=== PATIENT | male | born 1935 | race Caucasian/White ===

== ENCOUNTER → 2016-06-18 10:29 | Day surgery (SDC) | payer MEDICARE, OTHER ==
[~2016-06-18 10:29] MED LIST: Acetaminophen TAB* 325 MG PO PRN; Acetylcholine 1:100 OPTH* OPHTH.SOLN ONE; Atropine 1% OPHTH.SOL* 2 ML BOT - 2 ML ONE; BSS OPTH.SOL* BTL ONE; Buffered Lidocaine 1% SYRIN* 3 ML/SYR SYRINGE INTRADERM ONE; Glycopyrrolate IV* 0.2 MG/ML 1 ML VIAL ONE; Hyaluronidase OVINE* 200 UNIT/ML ML SUBCUT ONE; Lidocaine 2% EPI 1:200000 MPF* 20 ML VIAL ONE; Lidocaine 2% PF* 10 ML AMP ONE; Midazolam* 1 MG/ML 5 ML VIAL (5 MG) ONE; Neomycin/Polymy/Dex OPTH.SUSP* MAXITROL 0.1% 5 ML ONE; Ondansetron INJ* 2 MG/ML VIAL ONE; Povidone Iodine 5% OPTH* 30 ML BTL ONE; Proparacaine 0.5% OPHTH.SOL* 15 ML BTL ONE; Propofol* 10 MG/ML 20 ML BTL IV PUSH ONE; Sodium Bicarbonate 8.4% SYR* 10 ML SYRINGE ONE; Triamcinolone Acetonide* 40 MG/ML 1 ML VIAL ONE; fentaNYL* 50 MCG/ML 2 ML VIAL (100 MCG VIAL) ONE; mitoMYcin 0.2 MG (0.02%) in Sterile Water for Inj* 1 ML OPHTHALMIC SCH; mitoMYcin PWD* 0.2 MG in Sterile Water for Inj* 1 ML OPHTHALMIC SCH
[2016-06-18 15:04] VITALS: BP 124/72
--- NOTE | 2016-06-19 05:21 | OP ---
DATE OF OPERATION: 06/18/16 - [facility] DATE OF : 33 SURGEON: Luis A Farah MD ANESTHESIA: Local with MAC. PREOPERATIVE DIAGNOSIS: Uncontrolled glaucoma, left eye. POSTOPERATIVE DIAGNOSIS: Uncontrolled glaucoma, left eye. OPERATIVE PROCEDURE: Trabeculectomy, left eye. COMPLICATIONS: None. DESCRIPTION OF PROCEDURE: The patient was given retrobulbar anesthesia in the operating room. 50:50 mixture of 2% lidocaine and 0.75 Marcaine added, 5 cc were given to the muscle cone without difficulty. The eye was prepped and draped in the usual sterile fashion. Lid speculum was placed. A superior limbal traction suture 6-0 silk was placed and the eye rotated inferiorly. A fornix-based conjunctival peritomy was performed from the 9:30 to 11:30 position with the Dc scissors. Hemostasis was achieved with cautery. The mitomycin-C 0.2 mg per mL was given subconjunctivally for 1 minute and then thoroughly irrigated. A limbal based half sclera thickness triangular sclera flap was created using a crescent blade. Anterior chamber entered with a 3 mm keratome. A 3 x 1 trabecular block excised using the Janice punch, peripheral iridectomy performed using the Vannas scissors. Scleral flap sutured with two 10 -0 nylon interrupted sutures. Paracentesis was made at the 4 o'clock position. Balanced salt solution used to irrigate the anterior chamber as well as Miochol, then the conjunctiva was closed using a running locking 10-0 nylon closure. Traction suture removed. Topical atropine and Maxitrol given. Kenalog 40 per mL, 1 mL was given sub-Tenons, and the area was patched. [id number]/[facility] #: [id number] [facility]
== END | disposition home or self-care (01) ==
LOC: OREAST 10:29
PROVIDERS: ATTEND Specialist
DX: H40.1123 Primary open-angle glaucoma, left eye, severe stage (principal); H40.1111 Primary open-angle glaucoma, right eye, mild stage; F43.21 Adjustment disorder with depressed mood
CPT/HCPCS: A9270-GY; J2001; J2250; J2405; J2704; J3010; J3301; J9293

== ENCOUNTER 2016-08-06 10:39 | Day surgery (SDC) | payer MEDICARE, OTHER ==
[~2016-08-06 10:39] MED LIST changes: -Atropine 1% OPHTH.SOL* 2 ML BOT - 2 ML ONE; -Buffered Lidocaine 1% SYRIN* 3 ML/SYR SYRINGE INTRADERM ONE; +Buffered Lidocaine 1% SYRIN* 5 ML/SYR SYRINGE INTRADERM ONE; -Glycopyrrolate IV* 0.2 MG/ML 1 ML VIAL ONE; -Midazolam* 1 MG/ML 5 ML VIAL (5 MG) ONE; -Ondansetron INJ* 2 MG/ML VIAL ONE; -Proparacaine 0.5% OPHTH.SOL* 15 ML BTL ONE; -Propofol* 10 MG/ML 20 ML BTL IV PUSH ONE; -Sodium Bicarbonate 8.4% SYR* 10 ML SYRINGE ONE; +Sodium Bicarbonate 8.4%* 50 ML SYRINGE ONE; -fentaNYL* 50 MCG/ML 2 ML VIAL (100 MCG VIAL) ONE; -mitoMYcin 0.2 MG (0.02%) in Sterile Water for Inj* 1 ML OPHTHALMIC SCH
[2016-08-06] MEDS ORDERED: Proparacaine 0.5% OPHTH.SOL* 15 ML BTL ONE (10:47)
[2016-08-06] MEDS ORDERED: Atropine 1% OPHTH.SOL* 2 ML BOT - 2 ML ONE (12:05)
[2016-08-06] MEDS ORDERED: fentaNYL* 50 MCG/ML 2 ML VIAL (100 MCG VIAL) ONE (13:03)
[2016-08-06] MEDS ORDERED: Midazolam* 1 MG/ML 5 ML VIAL (5 MG) ONE ×2 (13:04)
[2016-08-06 14:17] VITALS: BP 145/66
--- NOTE | 2016-08-07 02:54 | OP ---
DATE OF OPERATION: 08/06/16 - [facility] DATE OF : 33 SURGEON: Luis A Farah MD ANESTHESIA: Local with MAC. PRE-OP DIAGNOSIS: Uncontrolled glaucoma, right eye. POST-OP DIAGNOSIS: Uncontrolled glaucoma, right eye. OPERATIVE PROCEDURE: Trabeculectomy, right eye. COMPLICATIONS: None. DESCRIPTION OF PROCEDURE: The patient was given retrobulbar anesthesia in the operating room, 50:50 mixture of 0.75 Marcaine with 2% lidocaine with epinephrine 50:50 mixture, 4 cc was injected into the muscle cone without difficulty. 6-0 silk traction suture was placed through superior limbus and the eye rotated inferiorly. Paracentesis made at the 8 o'clock position with a blade. A fornix-based conjunctival peritomy was performed with Dc scissors. Hemostasis was achieved with low-temp cautery. Mitomycin-C 0.2 mg/mL was placed sub-Tenon's for a little over one minute and then thoroughly irrigated with balanced salt solution. A triangular half scleral thickness limbal based scleral flap was created with the crescent blade also at the 2 o'clock position. Anterior chamber entered with a 2.2 mm keratome and Miochol instilled into the anterior chamber. The trabecular block excised using the Janice punch underneath that flap and then the flap secured with one 10-0 nylon suture at the apex. Conjunctiva was then closed using a running locking 10-0 nylon suture at the limbus and a 9-0 Vicryl locking suture closure along the edges. All wounds were checked and found to be watertight. Sub-Tenon's Kenalog 40 mg/mL 1 mL was injected and then the eye was patched. [id number]/[facility] #: [id number] [facility] HEALTH SYSTEMIngrid
== END 2016-08-06 14:14 | disposition home or self-care (01) ==
LOC: OREAST 10:39
PROVIDERS: ATTEND Specialist
DX: H40.1110 Primary open-angle glaucoma, right eye, stage unspecified (principal); Z88.1 Allergy status to other antibiotic agents; Z88.0 Allergy status to penicillin
CPT/HCPCS: A9270-GY; J2001; J2250; J3010; J3301; J9293

== ENCOUNTER 2018-06-25 09:08 | Emergency (ER) | payer MEDICARE, OTHER ==
--- NOTE | 2018-06-25 10:22 | ED ---
Upper Extremity Pain - HPI Summary HPI Summary: 83-year-old male with history of glaucoma presents with right arm pain today. He states he slept wrong. He states he was unable to straighten his arm. He states he had pain over his lower biceps area. He states feels like soft tissue pain. Denies any injury. He states is gradually been able to straighten his arm and has had decreasing pain. He states he did have some nausea likely due to the pain. Denies any neck pain. No weakness. No numbness or tingling. No chest pain or shortness of breath. No headache. No change in vision. no difficulties with speech. This never happened before. - History of Current Complaint Chief Complaint: EDExtremityUpper Stated Complaint: SLEPT ON RT ARM/SHLDER CANT STRAIGHTEN/NAUSEA PT Time Seen by Provider: 06/25/18 09:31 - Allergies/Home Medications Allergies/Adverse Reactions: Allergies Allergy/AdvReac Type Severity Reaction Status Date / Time brimonidine Allergy Eyes Verified 06/25/18 09:18 Itchy/Swollen/Red/Watery brinzolamide Allergy Hives Verified 06/25/18 09:18 Penicillins Allergy Hives Verified 06/25/18 09:18 Sulfa (Sulfonamide Allergy Hives Verified 06/25/18 09:18 Antibiotics) Home Medications: Home Medications Magnesium Oxide [Magnesium] 250 mg PO DAILY 06/25/18 [History Confirmed 06/25/18 ] PMH/Surg Hx/FS Hx/Imm Hx Endocrine/Hematology History: Denies: Hx Diabetes Cardiovascular History: Reports: Other Cardiovascular Problems/Disorders - PERIPHERAL CIRCULATORY PROBLEMS WITH TOES Denies: Hx Hypertension, Hx Pacemaker/ICD Respiratory History: Reports: Other Respiratory Problems/Disorders - CHRONIC SNEEZE GI History: Reports: Hx Gastroesophageal Reflux Disease - PRN TUMS History: Reports: Hx Kidney Stones - 40 YEARS AGO X 1, Other Problems/ Disorders - Prostate cancer- HAD SURGERY FOR 10 YEARS AGO Denies: Hx Renal Disease Musculoskeletal History: Reports: Hx Arthritis - MILD IN THE NECK, Hx Bursitis - HX OF ELBOW- RIGHT, Hx Osteoporosis, Hx Tendonitis - HX OF MILD - RIGHT THUMB Denies: Hx Rheumatoid Arthritis Sensory History: Reports: Hx Cataracts, Hx Contacts or Glasses - GLASSES, Hx Glaucoma - BILATERAL Denies: Hx Hearing Aid Opthamlomology History: Reports: Hx Cataracts, Hx Contacts or Glasses - GLASSES , Hx Glaucoma - BILATERAL Neurological History: Reports: Other Neuro Impairments/Disorders - Peripheral nueropathy - FEET, rt hand essential tremor Psychiatric History: Reports: Hx Depression - 20 YEARS AGO Denies: Hx Panic Disorder - Cancer History Cancer Type, Location and Year: See above Hx Chemotherapy: No - Surgical History Surgery Procedure, Year, and Place: PROSTATECTOMY 2003. T&A- A CHILD. TRABECULECTOMY LEFT X 2 AND RIGHT EYE- 2 YEARS AGO- [place]. RIGHT AND LEFT CATARACT REMOVAL-2015 Hx Anesthesia Reactions: Yes - NAUSEA- BUT NOT WITH RECENT SURGERIES PER PATIENT Infectious Disease History: No Infectious Disease History: Denies: Traveled Outside the [place] in Last 30 Days - Family History Known Family History: Positive: Non-Contributory - Social History Alcohol Use: Occasionally Alcohol Amount: 1 Beer /month Substance Use Type: Reports: None Smoking Status (MU): Never Smoked Tobacco Review of Systems Negative: Fever Negative: Chest Pain Negative: Shortness Of Breath Positive: Myalgia - right arm pain All Other Systems Reviewed And Are Negative: Yes Physical Exam Triage Information Reviewed: Yes Vital Signs On Initial Exam: Initial Vitals Temp Pulse Resp BP Pulse Ox 97 F 48 16 114/93 99 06/25/18 09:12 06/25/18 09:12 06/25/18 09:12 06/25/18 09:12 06/25/18 09:12 Vital Signs Reviewed: Yes Appearance: Positive: Well-Appearing Skin: Positive: Warm, Dry Head/Face: Positive: Normal Head/Face Inspection Eyes: Positive: Normal, EOMI, DENNYS, Conjunctiva Clear ENT: Positive: Pharynx normal Neck: Positive: Other: - nontender neck, full ROM neck Respiratory/Lung Sounds: Positive: Clear to Auscultation, Breath Sounds Present Cardiovascular: Positive: Normal, RRR Musculoskeletal: Positive: Strength/ROM Intact - right arm, Other - good pulses , good voice teacher strength, sensation grossly intact, tenderness right antecubital region Neurological: Positive: Normal, Sensory/Motor Intact, Alert, Oriented to Person Place, Time, CN Intact II-III, Normal Gait, Facial Symmetry, Speech Normal. Negative: Pronator Drift Present Psychiatric: Positive: Normal - Elder Coma Scale Best Eye Response: 4 - Spontaneous Best Motor Response: 6 - Obeys Commands Best Verbal Response: 5 - Oriented Coma Scale Total: 15 Diagnostics - Vital Signs Vital Signs Temp Pulse Resp BP Pulse Ox 06/25/18 09:12 97 F 48 16 114/93 99 - Laboratory Result Diagrams: 06/25/18 10:19 06/25/18 10:19 Lab Statement: Any lab studies that have been ordered have been reviewed, and results considered in the medical decision making process. - EKG No standard instances Cardiac Rate: Bradycardia EKG Rhythm: Sinus Bradycardia Summary of EKG Findings: sinus bradycardia Course/Dx - Course Course Of Treatment: 83-year-old male with history of glaucoma presents with right arm pain today. He states he slept wrong. He states he was unable to straighten his arm. He states he had pain over his lower biceps area. He states feels like soft tissue pain. Denies any injury. He states is gradually been able to straighten his arm and has had decreasing pain. He states he did have some nausea likely due to the pain. Denies any neck pain. No weakness. No numbness or tingling. No chest pain or shortness of breath. No headache. No change in vision. no difficulties with speech. This never happened before. On exam has full range of motion of right arm. good strength. Neurovascular intact. Cranial nerves intact. Nih 0. no sign of stoke on exam. full ROM neck and nontneder neck. EKG shows sinus bradycardia which has a history of. troponin zero. lab work wnl. discussed likely muscular. told take tyenlol and apply heat. warned if anything changes to return. patient understand and agrees with plan. - Diagnoses Differential Diagnosis/HQI/PQRI: Positive: Fracture (Closed), Strain, Sprain Provider Diagnoses: Right arm pain Discharge - Sign-Out/Discharge Documenting (check all that apply): Patient Departure Patient Received Moderate/Deep Sedation with Procedure: No - Discharge Plan Condition: Good Disposition: HOME Referrals: Miya Tran MD [Primary Care Provider] - Additional Instructions: follow up with primary within 5 days take Tylenol every 6 hours as needed for pain apply heat Return to ED if develop any weakness, chest pain, SOB, slurred speech, or any new or worsening symptoms - Billing Disposition and Condition Condition: GOOD Disposition: Home
[2018-06-25 10:28] LABS: ABS Basophils 0.1 10^3/ul (0-0.2); ABS Eosinophils 0.2 10^3/ul (0-0.6); ABS Lymphocytes 1.2 10^3/ul (1.0-4.8); ABS Monocytes 0.4 10^3/ul (0-0.8); ABS Neutrophils 3.4 10^3/ul (1.5-7.7); ABS Nucleated RBC 0 10^3/ul; Eosinophil % 3.2 %; Hematocrit 42 % (36-46); Hemoglobin 14.1 g/dL (14.0-18.0); Lymphocyte % 22.5 %; Mean Corpuscular HGB Conc 34 g/dL (31-36); Mean Corpuscular Hemoglobin 31 pg (27-31); Mean Corpuscular Volume 90 fL (80-94); Mean Platelet Volume 9.7 fL (7.4-10.4); Nucleated Red Blood Cells % 0.1; Platelet Count 194 10^3/uL (150-450); Red Blood Count 4.63 10^6 /uL (4.18-5.48); Red Cell Distribution Width 14 % (10.5-15); White Blood Count 5.2 10^3/uL (3.5-10.8)
[2018-06-25 10:56] LABS: Albumin 4.1 g/dL (3.2-5.2); Albumin/Globulin Ratio 1.5 (1-3); BUN/Creatinine Ratio 19.2 (8-20); Calcium 9.6 mg/dL (8.6-10.3); EGFR African American 82.3 (>60); Globulin 2.8 g/dL (2-4); Potassium 4.5 mmol/L (3.5-5.0); Total Bilirubin 0.4 mg/dL (0.2-1.0); Total Protein 6.9 g/dL (6.4-8.9)
[2018-06-25 11:56] VITALS: BP 132/54
== END 2018-06-25 11:54 | disposition home or self-care (01) ==
LOC: ED 09:08
DX: M79.601 Pain in right arm (principal); K21.9 Gastro-esophageal reflux disease without esophagitis; Z87.442 Personal history of urinary calculi; Z88.0 Allergy status to penicillin; Z88.2 Allergy status to sulfonamides
CPT/HCPCS: 36415; 80053; 84484; 85025; 93005; 99282

== ENCOUNTER 2020-08-03 09:57 | Inpatient (IN) ==
[2020-08-03] MEDS ORDERED: NS 0.9% 1000 ml BAG 1,000 ML IV ONE (11:00)
[2020-08-03 12:14] LABS: ABS Basophils 0.1 10^3/ul (0-0.2); ABS Lymphocytes 1.2 10^3/ul (1.0-4.8); ABS Monocytes 0.7 10^3/ul (0-0.8); ABS Neutrophils 5.9 10^3/ul (1.5-7.7); Eosinophil % 0.2 %; Hematocrit 41 % (42-52); Hemoglobin 13.9 g/dL (14.0-18.0); Lymphocyte % 14.7 %; Mean Corpuscular HGB Conc 34 g/dL (31-36); Mean Corpuscular Hemoglobin 31 pg (27-31); Mean Corpuscular Volume 89 fL (80-94); Mean Platelet Volume 10.7 fL (7.4-10.4); Platelet Count 216 10^3/uL (150-450); Red Blood Count 4.56 10^6 /uL (4.18-5.48); Red Cell Distribution Width 14 % (10-15); White Blood Count 7.8 10^3/uL (3.5-10.8)
[2020-08-03 12:26] LABS: Albumin 4.3 g/dL (3.2-5.2); Anion Gap 8 mmol/L (2-11); CO2 Carbon Dioxide 26 mmol/L (22-32); Calcium 9.1 mg/dL (8.6-10.3); Chloride 94 mmol/L (101-111); Magnesium 2.3 mg/dL (1.9-2.7); Potassium 4.1 mmol/L (3.5-5.0); Sodium 128 mmol/L (135-145)
[2020-08-03 12:29] LABS: Troponin I 0.01 ng/mL (<0.03)
[2020-08-03 12:32] LABS: ALT 22 U/L (7-52); AST 41 U/L (13-39); Albumin/Globulin Ratio 1.4 (1-3); Alkaline Phosphatase 59 U/L (35-149); Blood Urea Nitrogen 13 mg/dL (6-24); C Reactive Protein 2.11 mg/L (<8.01); Creatine Kinase 523 U/L (10-223); EGFR African American 76.8 (>60); EGFR Non-African American 63.5 (>60); Glucose 107 mg/dL (70-100); Total Protein 7.3 g/dL (6.4-8.9)
[2020-08-03 12:45] LABS: Alcohol, S < 10 mg/dL (<10); Salicylate < 2.50 mg/dL (<30)
[2020-08-03 12:56] LABS: TSH Ultra Thyroid Stim Horm 2.65 mcIU/mL (0.34-5.60)
[2020-08-03 17:16] LABS: Body Fluid Source Cerebral Spinal
[2020-08-03 17:31] LABS: CSF Glucose 56 mg/dL (40-70)
[2020-08-03 18:36] LABS: Body Fluid Mono 30 %
[2020-08-03 18:56] LABS: Cholesterol 143 mg/dL; HDL Cholesterol 37.9 mg/dL; LDL Cholesterol 95 mg/dL; Triglycerides 52 mg/dL
[2020-08-03 23:26] LABS: Urine Appearance Cloudy; Urine Bilirubin Negative (Negative); Urine Blood Negative (Negative); Urine Color Yellow; Urine Glucose Negative (Negative); Urine Ketones Trace (Negative); Urine Nitrite Negative (Negative); Urine Protein Negative (Negative); Urine Specific Gravity 1.011 (1.002-1.030); Urine Urobilinogen Negative (Negative)
[2020-08-03 23:44] LABS: Urine Benzodiazepine Screen None Detected (None Detect); Urine Cannabinoids Screen None Detected (None Detect); Urine Opiates Screen None Detected (None Detect)
[2020-08-04 08:27] LABS: Calcium 9.3 mg/dL (8.6-10.3); EGFR African American 79.3 (>60); EGFR Non-African American 65.5 (>60); Potassium 3.9 mmol/L (3.5-5.0)
[2020-08-04] MEDS: Calcium/Vitamin D TAB 250/125 TAB PO SCH (10:06)
[2020-08-04] MEDS: Multivitamins/Minerals TAB PO SCH (10:08)
[2020-08-04] MEDS ORDERED: Gadoteridol (CONTRAST) 279.3 MG/ML 10 ML IV ONE (10:15)
[2020-08-04 20:44] LABS: Creatine Kinase 335 U/L (10-223)
[2020-08-04 20:52] LABS: Rheumatoid Factor < 10 IU/mL (<15)
[2020-08-04] MEDS ORDERED: METHYLPREDNISOLONE IV ONE (21:00)
[2020-08-04] MEDS ORDERED: NS 0.9% IV ONE (21:00)
[2020-08-04 21:18] LABS: Folate > 20.00 ng/mL (5.90-24.80)
[2020-08-04 21:19] LABS: Vitamin B12 > 1450 pg/mL (180-914)
[2020-08-04] MEDS ORDERED: methylPREDNISolone 125 mg 2 ML VIAL ONE (21:32)
[2020-08-05 06:11] LABS: ABS Lymphocytes 0.4 10^3/ul (1.0-4.8); ABS Monocytes 0.1 10^3/ul (0-0.8); ABS Neutrophils 6.2 10^3/ul (1.5-7.7); Hematocrit 39 % (42-52); Hemoglobin 13.4 g/dL (14.0-18.0); Lymphocyte % 5.6 %; Mean Corpuscular HGB Conc 34 g/dL (31-36); Mean Corpuscular Hemoglobin 31 pg (27-31); Mean Corpuscular Volume 89 fL (80-94); Mean Platelet Volume 10.9 fL (7.4-10.4); Platelet Count 208 10^3/uL (150-450); Red Blood Count 4.41 10^6 /uL (4.18-5.48); Red Cell Distribution Width 14 % (10-15); White Blood Count 6.7 10^3/uL (3.5-10.8)
[2020-08-05 06:26] LABS: Calcium 9.2 mg/dL (8.6-10.3); EGFR African American 84.7 (>60); Potassium 4.2 mmol/L (3.5-5.0)
[2020-08-05] MEDS ORDERED: LOTEPREDNOL ETABONATE 0.2% BOTH EYES SCH (09:00)
[2020-08-05] MEDS: Calcium/Vitamin D TAB 250/125 TAB PO SCH ×2 (10:42→11:14)
[2020-08-05] MEDS: Multivitamins/Minerals TAB PO SCH ×2 (10:42→11:15)
[2020-08-05] MEDS ORDERED: methylPREDNISolone SOD SUCC 1,000 MG in NS 0.9% 1000 ml BAG 1,000 ML IVPB ONE (16:09)
[2020-08-05] MEDS: methylPREDNISolone SOD SUCC 1,000 MG in NS 0.9% 250 ml 250 ML IVPB SCH (17:55)
[2020-08-06] MEDS: Calcium/Vitamin D TAB 250/125 TAB PO SCH (10:37)
[2020-08-06] MEDS: methylPREDNISolone SOD SUCC 1,000 MG in NS 0.9% 250 ml 250 ML IVPB SCH (10:38)
[2020-08-06] MEDS: Multivitamins/Minerals TAB PO SCH (10:38)
[2020-08-06 11:03] LABS: Calcium 9.9 mg/dL (8.6-10.3); EGFR African American 77.6 (>60); EGFR Non-African American 64.1 (>60)
[2020-08-07] MEDS: methylPREDNISolone SOD SUCC 1,000 MG in NS 0.9% 250 ml 250 ML IVPB SCH (09:19)
[2020-08-07] MEDS: Multivitamins/Minerals TAB PO SCH (09:20)
[2020-08-07] MEDS: Dextran 70/Hypromellose Tears Eye Drops 15 ml BTL (for Artificials Tears) BOTH EYES PRN (09:20)
[2020-08-07] MEDS: Calcium/Vitamin D TAB 250/125 TAB PO SCH (09:20)
[2020-08-07] MEDS: LOTEPREDNOL ETABONATE BOTH EYES SCH (10:16)
[2020-08-07] MEDS ORDERED: Lorazepam PYXIS KEY PRN (14:37)
[2020-08-07] MEDS ORDERED: Gadoteridol (CONTRAST) 279.3 MG/ML 10 ML IV ONE (15:24)
[2020-08-07] MEDS ORDERED: LORazepam 2 mg VIAL 1 ml IV PUSH ONE (18:00)
[2020-08-07 23:54] LABS: Thyroid Peroxidase Antibodies 4.99 IU/mL (<9)
[2020-08-08 04:18] LABS: Urine Appearance Cloudy; Urine Bilirubin Negative (Negative); Urine Blood 3+ (Negative); Urine Color Yellow; Urine Glucose Negative (Negative); Urine Ketones Negative (Negative); Urine Nitrite Negative (Negative); Urine Protein 1+(30 mg/dL) (Negative); Urine Urobilinogen Negative (Negative)
[2020-08-08 04:45] LABS: Urine Bacteria Absent (Absent); Urine Red Blood Cell 3+(>10/hpf) (Absent); Urine White Blood Cell Trace(0-5/hpf) (Absent)
[2020-08-08] MEDS: Calcium/Vitamin D TAB 250/125 TAB PO SCH ×2 (10:34→10:39)
[2020-08-08] MEDS: Multivitamins/Minerals TAB PO SCH ×2 (10:34→10:39)
[2020-08-08] MEDS: methylPREDNISolone SOD SUCC 1,000 MG in NS 0.9% 250 ml 250 ML IVPB SCH (10:38)
[2020-08-08 16:57] LABS: HSV 1 PCR, CSF Negative (Negative); HSV 2 PCR, CSF Negative (Negative)
[2020-08-09 05:41] LABS: ABS Lymphocytes 0.4 10^3/ul (1.0-4.8); ABS Monocytes 0.8 10^3/ul (0-0.8); ABS Neutrophils 10.1 10^3/ul (1.5-7.7); Hematocrit 39 % (42-52); Hemoglobin 13.1 g/dL (14.0-18.0); Lymphocyte % 3.8 %; Mean Corpuscular HGB Conc 33 g/dL (31-36); Mean Corpuscular Hemoglobin 30 pg (27-31); Mean Corpuscular Volume 90 fL (80-94); Platelet Count 214 10^3/uL (150-450); Red Blood Count 4.34 10^6 /uL (4.18-5.48); Red Cell Distribution Width 15 % (10-15); White Blood Count 11.4 10^3/uL (3.5-10.8)
[2020-08-09 05:58] LABS: Calcium 8.9 mg/dL (8.6-10.3); EGFR African American 98.1 (>60); Potassium 4.3 mmol/L (3.5-5.0)
[2020-08-09] MEDS: Calcium/Vitamin D TAB 250/125 TAB PO SCH (08:07)
[2020-08-09] MEDS: Multivitamins/Minerals TAB PO SCH (08:08)
[2020-08-09] MEDS: LOTEPREDNOL ETABONATE BOTH EYES SCH (08:08)
[2020-08-09] MEDS: methylPREDNISolone SOD SUCC 1,000 MG in NS 0.9% 250 ml 250 ML IVPB SCH (08:16)
[2020-08-09 13:27] LABS: Amphiphysin Ab, CSF Negative titer (<1:2); CRMP-5-IgG, CSF Negative titer (<1:2); PCA-1, CSF Negative titer (<1:2); PCA-2, CSF Negative titer (<1:2); PCA-Tr, CSF Negative titer (<1:2)
[2020-08-09 15:17] LABS: CSF VDRL Negative (Negative)
[2020-08-10] MEDS: Multivitamins/Minerals TAB PO SCH (09:52)
[2020-08-10] MEDS: Calcium/Vitamin D TAB 250/125 TAB PO SCH (09:52)
[2020-08-10] MEDS: Dextran 70/Hypromellose Tears Eye Drops 15 ml BTL (for Artificials Tears) BOTH EYES PRN (10:05)
[2020-08-10] MEDS: methylPREDNISolone SOD SUCC 1,000 MG in NS 0.9% 250 ml 250 ML IVPB SCH (22:52)
[2020-08-10] MEDS ORDERED: Magnesium Sulfate IV 1GM/100ML 1 GM/100 ML BAG IV ONE (23:42)
[2020-08-11 00:07] LABS: Magnesium 2.7 mg/dL (1.9-2.7)
[2020-08-11 05:57] LABS: ABS Lymphocytes 0.3 10^3/ul (1.0-4.8); ABS Monocytes 0.1 10^3/ul (0-0.8); ABS Neutrophils 8.1 10^3/ul (1.5-7.7); Hematocrit 36 % (42-52); Hemoglobin 12.4 g/dL (14.0-18.0); Lymphocyte % 3.7 %; Mean Corpuscular HGB Conc 34 g/dL (31-36); Mean Corpuscular Hemoglobin 30 pg (27-31); Mean Corpuscular Volume 89 fL (80-94); Mean Platelet Volume 10.4 fL (7.4-10.4); Platelet Count 179 10^3/uL (150-450); Red Blood Count 4.08 10^6 /uL (4.18-5.48); Red Cell Distribution Width 15 % (10-15); White Blood Count 8.6 10^3/uL (3.5-10.8)
[2020-08-11 06:11] LABS: Calcium 8.6 mg/dL (8.6-10.3); EGFR Non-African American 84.3 (>60); Potassium 4.6 mmol/L (3.5-5.0)
[2020-08-11] MEDS: Multivitamins/Minerals TAB PO SCH (10:53)
[2020-08-11] MEDS: LOTEPREDNOL ETABONATE BOTH EYES SCH (10:54)
[2020-08-11] MEDS: Calcium/Vitamin D TAB 250/125 TAB PO SCH (10:54)
[2020-08-11] MEDS: methylPREDNISolone SOD SUCC 1,000 MG in NS 0.9% 250 ml 250 ML IVPB SCH (12:43)
[2020-08-12] MEDS: Multivitamins/Minerals TAB PO SCH (10:29)
[2020-08-12] MEDS: Calcium/Vitamin D TAB 250/125 TAB PO SCH (10:29)
[2020-08-12 19:29] LABS: Magnesium 2.6 mg/dL (1.9-2.7)
[2020-08-13 06:27] LABS: ABS Lymphocytes 1.2 10^3/ul (1.0-4.8); ABS Neutrophils 5.4 10^3/ul (1.5-7.7); Eosinophil % 0.1 %; Hematocrit 39 % (42-52); Hemoglobin 13.2 g/dL (14.0-18.0); Lymphocyte % 16.3 %; Mean Corpuscular HGB Conc 34 g/dL (31-36); Mean Corpuscular Hemoglobin 30 pg (27-31); Mean Corpuscular Volume 90 fL (80-94); Mean Platelet Volume 10.5 fL (7.4-10.4); Platelet Count 174 10^3/uL (150-450); Red Blood Count 4.37 10^6 /uL (4.18-5.48); Red Cell Distribution Width 14 % (10-15); White Blood Count 7.7 10^3/uL (3.5-10.8)
[2020-08-13 06:43] LABS: Calcium 8.5 mg/dL (8.6-10.3); EGFR African American 110.9 (>60); EGFR Non-African American 91.7 (>60); Magnesium 2.4 mg/dL (1.9-2.7); Potassium 3.9 mmol/L (3.5-5.0)
[2020-08-13] MEDS: LOTEPREDNOL ETABONATE BOTH EYES SCH (08:21)
[2020-08-13] MEDS: Calcium/Vitamin D TAB 250/125 TAB PO SCH (08:22)
[2020-08-13] MEDS: Multivitamins/Minerals TAB PO SCH (08:22)
[2020-08-13 10:43] LABS: West Nile Virus Source CSF
[2020-08-13] MEDS ORDERED: hydrALAZINE 20 mg/ml 1 ML Vial IV IV SLOW PU ONE (20:27)
[2020-08-14] MEDS: Multivitamins/Minerals TAB PO SCH (07:33)
[2020-08-14] MEDS: Calcium/Vitamin D TAB 250/125 TAB PO SCH (07:34)
[2020-08-14 11:49] VITALS: BP 163/70
== END 2020-08-14 14:05 ==
LOC: ED 09:57 → MEDTELE 17:22
PROVIDERS: ADMIT Internal Medicine; ATTEND Internal Medicine

== ENCOUNTER 2023-06-23 11:07 | Inpatient (IN) ==
[2023-06-23 12:48] LABS: Hematocrit 35.5 % (38-53); Hemoglobin 12.1 g/dL (13.2-16.3); Mean Corpuscular Hemoglobin 29.9 pg (27-33); Mean Corpuscular Hgb Conc 34.1 g/dL (31-36); Mean Corpuscular Volume 87.7 fL (80-97); Platelet Count 276 10^3/uL (150-450); Red Blood Count 4.05 10^6/uL (4.06-5.63); Red Cell Distribution Width 14.9 % (12-17); White Blood Count 11.4 10^3/uL (3.6-10.2)
[2023-06-23 13:38] LABS: Anion Gap 10 mmol/L (2-16); Blood Urea Nitrogen 15 mg/dL (6-24); CO2 Carbon Dioxide 26 mmol/L (22-32); Calcium 9.5 mg/dL (8.6-10.3); Chloride 98 mmol/L (101-111); Creatinine, Serum 0.92 mg/dL (0.67-1.17); Glucose 93 mg/dL (70-100); Sodium 134 mmol/L (135-145); eGFR CKD-EPI 79.5 (>60)
[2023-06-23] MEDS ORDERED: Magnesium Hydroxide LIQ 30 ML UDC PO PRN (14:46)
[2023-06-23] MEDS ORDERED: Senna TAB 8.6 mg TAB PO PRN (14:46)
[2023-06-23] MEDS ORDERED: Polyethylene Glycol 3350 17 GM PACKET PO PRN (14:46)
[2023-06-23] MEDS ORDERED: HYDROcodone/ACETAMIN 5/325 mg TAB PO PRN (14:49)
[2023-06-23] MEDS ORDERED: Naloxone Nasal Spray 4 MG/0.1 ML NASAL.SPR INTRANASAL PRN (14:51)
[2023-06-23 18:02] LABS: Calcium 9.6 mg/dL (8.6-10.3); Creatinine, Serum 0.99 mg/dL (0.67-1.17); Magnesium 2.2 mg/dL (1.9-2.7); Potassium 4.3 mmol/L (3.5-5.0); eGFR CKD-EPI 72.8 (>60)
[2023-06-23] MEDS: Enoxaparin 40 MG/0.4 ML SYR SUBCUT SCH (18:19)
[2023-06-23] MEDS: Magnesium Sulfate IV 1GM/100ML 1 GM/100 ML BAG IV ONE (18:22)
[2023-06-23] MEDS: Saline NASAL SPRAY 0.65% BTL BOTH NARES SCH (22:46)
[2023-06-23] MEDS: NS 0.9% 1000 ml BAG 1,000 ML IV SCH (23:57)
[2023-06-24 06:47] LABS: ABS Basophils 0.1 10^3/uL (0.0-0.1); ABS Eosinophils 0.1 10^3/uL (0.0-0.5); ABS Lymphocytes 2.3 10^3/uL (1.0-4.8); ABS Neutrophils 6.1 10^3/uL (1.5-7.6); Eosinophil % 1.4 %; Hematocrit 35.4 % (38-53); Hemoglobin 12.1 g/dL (13.2-16.3); Mean Corpuscular Hemoglobin 29.9 pg (27-33); Mean Corpuscular Hgb Conc 34.1 g/dL (31-36); Mean Corpuscular Volume 87.5 fL (80-97); Mean Platelet Volume 10.5 fL (7.5-11.2); Platelet Count 268 10^3/uL (150-450); Red Blood Count 4.05 10^6/uL (4.06-5.63); Red Cell Distribution Width 14.7 % (12-17); White Blood Count 9.6 10^3/uL (3.6-10.2)
[2023-06-24 07:12] LABS: Calcium 8.7 mg/dL (8.6-10.3); Magnesium 2.2 mg/dL (1.9-2.7); Potassium 4.2 mmol/L (3.5-5.0); eGFR CKD-EPI 71.9 (>60)
[2023-06-24] MEDS ORDERED: Sulfur Hexaflouride MICROSPHR 25 MG VIAL ONE (08:20)
[2023-06-24] MEDS: CMCS: Olopatadine 0.1% OPHTH (NF) 1 DROP BTL BOTH EYES SCH (10:09)
[2023-06-24] MEDS: NF: Olopatadine 0.2% (NF) 1 DROP BTL BOTH EYES SCH (10:15)
[2023-06-24] MEDS ORDERED: fentaNYL 100 mcg/2 ml 50 MCG/ML VIAL IV PRN (13:42)
[2023-06-24] MEDS ORDERED: Naloxone 0.4 mg VIAL 0.4 mg/ml 1 ml VIAL IV PRN ×2 (13:42→15:45)
[2023-06-24] MEDS ORDERED: Ondansetron 4 mg VIAL 2 MG/ML 2 ml VIAL IV PRN (13:42)
[2023-06-24] MEDS: Acetaminophen IV 1 GM/100ML 1,000 MG/100 ML BAG IV ONE (16:01)
[2023-06-24] MEDS ORDERED: Polyethylene Glycol 3350 17 GM PACKET PO PRN (16:52)
[2023-06-24] MEDS ORDERED: Magnesium Hydroxide LIQ 30 ML UDC PO PRN (16:52)
[2023-06-24] MEDS ORDERED: Morphine 2 MG/ML SYRINGE IV PRN (16:52)
[2023-06-24] MEDS ORDERED: Senna TAB 8.6 mg TAB PO PRN (16:52)
[2023-06-24] MEDS: Lactated Ringers 1000 ml BAG 1,000 ML IV ONE (17:52)
[2023-06-24] MEDS: Magnesium Hydroxide LIQ 30 ML UDC PO SCH (20:13)
[2023-06-24] MEDS: ceFAZolin 1 GM ADVAN 1 GM in NS 0.9% 50 ML 50 ML IVPB SCH (22:11)
[2023-06-24] MEDS ORDERED: Calcium Carb (TUMS) 500 mg CHEW TAB PO PRN (23:37)
[2023-06-25 06:13] LABS: Hemoglobin 10.5 g/dL (13.2-16.3); Mean Platelet Volume 10.7 fL (7.5-11.2); Platelet Count 265 10^3/uL (150-450)
[2023-06-25 06:30] LABS: Calcium 8.7 mg/dL (8.6-10.3); Creatinine, Serum 0.88 mg/dL (0.67-1.17); Potassium 4.6 mmol/L (3.5-5.0); eGFR CKD-EPI 82.2 (>60)
[2023-06-25] MEDS ORDERED: Erythromycin OPTH OINT APPLIC OINT BOTH EYES PRN (08:36)
[2023-06-25] MEDS: Dextran 70/Hypromellose Tears Eye Drops 15 ml BTL (for Artificials Tears) BOTH EYES SCH (10:06)
[2023-06-25] MEDS: Enoxaparin 40 MG/0.4 ML SYR SUBCUT SCH (12:35)
[2023-06-26 06:10] LABS: Hematocrit 29.3 % (38-53); Hemoglobin 10.1 g/dL (13.2-16.3); Mean Platelet Volume 10.4 fL (7.5-11.2); Platelet Count 261 10^3/uL (150-450)
[2023-06-26 06:39] LABS: Calcium 8.4 mg/dL (8.6-10.3); Creatinine, Serum 0.94 mg/dL (0.67-1.17); Potassium 4.3 mmol/L (3.5-5.0); eGFR CKD-EPI 77.5 (>60)
[2023-06-26 09:33] LABS: Rapid COVID-19 Molecular Undetected (Undetected)
[2023-06-26 10:25] VITALS: BP 132/68
== END 2023-06-26 13:30 | DRG 482 ==
LOC: EDHOLD 11:07 → ED 11:07 → SUATTDRO 14:46 → SSU 15:43
PROVIDERS: ADMIT Internal Medicine; ATTEND Student in an Organized Health Care Education/Training Program